=== PATIENT | male | born 2000 | race Caucasian/White ===

== ENCOUNTER 2020-12-15 11:55 | Emergency (ER) | payer OTHER ==
[2020-12-15 12:03] VITALS: BP 135/79; PULSE 78; RESP 18; TEMP 97.7
--- NOTE | 2020-12-15 13:12 | ED ---
Wound/Laceration HPI - General Chief Complaint: Wound/Laceration Stated Complaint: Head injury Time Seen by Provider: 12/15/20 13:03 Source: patient, RN notes reviewed Limitations: no limitations - History of Present Illness Initial Comments: Patient is a 20-year-old male presented to the ED for scalp laceration. Patient states that he ran into an air duct cutting anterior aspect of the scalp within hairline. Patient denies any loss of consciousness, patient does report some dizziness and a mild headache with the event. Patient states they are in mild discomfort at this time is most concerned about infection. Patient denies any deficits at this time, states that he is well. patient denies any discomfort elsewhere in scalp, face, or mandible area. - Related Data Allergies Allergy/AdvReac Type Severity Reaction Status Date / Time No Known Allergies Allergy Verified 12/15/20 12:03 Review of Systems ROS Statement: Those systems with pertinent positive or pertinent negative responses have been documented in the HPI. ROS Other: All systems not noted in ROS Statement are negative. Past Medical History Past Medical History: No Reported History Past Surgical History: No Surgical Hx Reported Past Psychological History: No Psychological Hx Reported Smoking Status: Never smoker Past Alcohol Use History: None Reported Past Drug Use History: None Reported General Exam Limitations: no limitations General appearance: alert, in no apparent distress Expanded Head exam: Present: laceration (anterior scalp), abrasion (anterior scalp) Eye exam: Present: normal appearance, PERRL, EOMI. Absent: scleral icterus, conjunctival injection, periorbital swelling Neck exam: Present: normal inspection. Absent: tenderness, meningismus, lymphadenopathy Respiratory exam: Present: normal lung sounds bilaterally. Absent: respiratory distress, wheezes, rales, rhonchi, stridor Cardiovascular Exam: Present: regular rate, normal rhythm, normal heart sounds. Absent: systolic murmur, diastolic murmur, rubs, gallop, clicks Neurological exam: Present: alert, oriented X3 Skin exam: Present: warm, dry, intact, normal color. Absent: rash Course Vital Signs 12/15/20 12:01 Temperature 97.7 F Pulse Rate 78 Respiratory 18 Rate Blood Pressure 135/79 O2 Sat by Pulse 98 Oximetry Medical Decision Making - Medical Decision Making Anterior scalp laceration with tissue removal unable to stitch or staple tissue. We will clean site, put antibiotic ointment along laceration and dress areas with clean gauze. Patient will also receive TDap today secondary to unknown vaccination status. discuss pain management with [id number] alternating ibuprofen and acetaminophen. - Differential Diagnosis scalp laceration Disposition Clinical Impression: Scalp laceration Disposition: HOME SELF-CARE Condition: Stable Instructions (If sedation given, give patient instructions): Laceration (ED) Additional Instructions: Please return to the Emergency Department if symptoms worsen or any other concerns. Is patient prescribed a controlled substance at d/c from ED?: No Referrals: None,Stated [Primary Care Provider] - 1-2 days Time of Disposition: 13:32
[2020-12-15] MEDS ORDERED: DIPH,PERTUS(ACELL)TETVAC-LF 0.5 ML VIAL IM ONE (13:16)
[2020-12-15] MEDS ORDERED: BACITRACIN OINT 1 EACH PACKET TOPICAL ONE (13:17)
== END 2020-12-15 14:06 | disposition home or self-care (01) ==
LOC: EC 11:55
DX: S01.01XA Laceration without foreign body of scalp, initial encounter (principal); W22.8XXA Striking against or struck by other objects, initial encounter
CPT/HCPCS: 90715; 99283

== ENCOUNTER 2021-06-24 22:32 | Emergency (ER) | payer OTHER ==
[2021-06-24 23:16] VITALS: BP 127/89; PULSE 91; RESP 16; TEMP 98.1
--- NOTE | 2021-06-24 23:49 | ED ---
General Adult HPI - General Chief complaint: ENT Stated complaint: Right Ear Pressure Time Seen by Provider: 06/24/21 23:36 Source: patient, RN notes reviewed, old records reviewed Mode of arrival: ambulatory Limitations: no limitations - History of Present Illness Initial comments: 20 yo presenting with chief complaint of cough and cold symptoms and right ear pain for the past one week. His girlfriend has had coronavirus and a been sleeping in the same bed and interacting throughout the week. He states that many of his symptoms have improved but is left with right ear pain. - Related Data Home Medications Medication Instructions Recorded Confirmed Acetaminophen Tab [Tylenol] 1,000 mg PO Q4H PRN 12/15/20 12/15/20 Allergies Allergy/AdvReac Type Severity Reaction Status Date / Time No Known Allergies Allergy Verified 06/24/21 23:16 Review of Systems ROS Statement: Those systems with pertinent positive or pertinent negative responses have been documented in the HPI. ROS Other: All systems not noted in ROS Statement are negative. Past Medical History Past Medical History: No Reported History History of Any Multi-Drug Resistant Organisms: None Reported Past Surgical History: No Surgical Hx Reported Past Psychological History: No Psychological Hx Reported Smoking Status: Never smoker Past Alcohol Use History: Occasional Past Drug Use History: None Reported General Exam Limitations: no limitations General appearance: alert, in no apparent distress Head exam: Present: atraumatic, normocephalic Eye exam: Present: normal appearance, PERRL ENT exam: Absent: TM's normal bilaterally (The right tympanic membrane is mildly erythematous, there is some central scarring however the cone of light is normal.) Cardiovascular Exam: Present: regular rate, normal rhythm GI/Abdominal exam: Present: soft. Absent: distended, tenderness Extremities exam: Present: normal inspection, normal capillary refill. Absent: pedal edema Neurological exam: Present: alert, oriented X3, CN II-XII intact. Absent: motor sensory deficit Psychiatric exam: Present: normal affect, normal mood Skin exam: Present: warm, dry, intact. Absent: cyanosis, diaphoretic Course Vital Signs 06/24/21 23:12 Temperature 98.1 F Pulse Rate 91 Respiratory 16 Rate Blood Pressure 127/89 O2 Sat by Pulse 99 Oximetry Medical Decision Making - Medical Decision Making Patient does test positive for coronavirus. His ear pain is likely secondary to effusion and not a bacterial infection. He is well-appearing with no respiratory distress, lungs are clear, normal oxygenation. He will quarantine. Tylenol for pain. - Lab Data Lab Results 06/24/21 Range/Units 23:48 Coronavirus (PCR) Detected A (Not Detectd) Disposition Clinical Impression: COVID-19 Disposition: HOME SELF-CARE Instructions (If sedation given, give patient instructions): Earache (ED), COVID-19 (Coronavirus Disease 2019) (ED) Is patient prescribed a controlled substance at d/c from ED?: No Referrals: None,Stated [Primary Care Provider] - 1-2 days Clint Light MD [STAFF PHYSICIAN] - 1-2 days Time of Disposition: 00:09
== END 2021-06-25 00:22 | disposition home or self-care (01) ==
LOC: EC 22:32
DX: U07.1 COVID-19 (principal)
CPT/HCPCS: 87635; 99284

== ENCOUNTER 2021-07-17 22:44 | Emergency (ER) | payer OTHER ==
[2021-07-17 22:51] VITALS: BP 136/82; PULSE 90; RESP 18; TEMP 98.2
--- NOTE | 2021-07-17 23:35 | CT ---
EXAMINATION TYPE: CT brain wo con DATE OF EXAM: 07/17/2021 COMPARISON: None HISTORY: Head trauma. Fell down the stairs. CT DLP: mGycm Automated exposure control for dose reduction was used. Ventricles have normal size. There is no mass effect or midline shift. No sign of intracranial hemorr andres. The calvarium is intact. Skull base is intact. There is normal aeration of the mastoid sinuses. IMPRESSION: Negative unenhanced head CT scan.
--- NOTE | 2021-07-18 00:13 | XR ---
EXAMINATION TYPE: XR lumbar spine 2 or 3V DATE OF EXAM: 07/17/2021 COMPARISON: NONE HISTORY: Pain TECHNIQUE: 4 views FINDINGS: The lumbar vertebra have normal alignment. Posterior elements are intact. No compression fr acture. Disc spaces are fairly normal. Sacroiliac joints appear normal. IMPRESSION: Normal lumbar spine exam.
== END 2021-07-18 00:06 | disposition left against medical advice (07) ==
LOC: EC 22:44
DX: Z53.21 Procedure and treatment not carried out due to patient leaving prior to being seen by health care provider (principal)
CPT/HCPCS: 70450; 72100; 99499